=== PATIENT | female | born 2000 | race Caucasian/White ===

== ENCOUNTER 2023-07-23 19:06 | Emergency (ER) | payer BC ==
[~2023-07-23] VITALS: Ht 160 cm; Wt 51.1 kg
[2023-07-23] MEDS ORDERED: NAPR500T6 PO (19:17)
[2023-07-23 20:20] LABS: VENOUS BASE EXCESS -1.6 (-2.0-2.0); VENOUS HCO3 22.8 MMOL/L (23.0-27.0); VENOUS O2 SATURATION 86.2 % (60.0-80.0); VENOUS PARTIAL PRESSURE CO2 37.8 mmHg (38.0-50.0); VENOUS PARTIAL PRESSURE O2 48.5 mmHg (30.0-50.0); VENOUS PH 7.399 UNITS (7.330-7.430); VENOUS STANDARD HCO3 22.9 MMOL/L
[2023-07-23] MEDS: NS 1,000 ML IV ONE (20:20)
[2023-07-23 20:25] LABS: BASO % 0.5 % (0.0-1.0); EOS # 0.1 10^3/uL (0.0-0.5); EOS % 1.7 % (0.0-3.0); HEMATOCRIT 38.2 % (36.0-47.0); HEMOGLOBIN 12.9 g/dl (12.0-15.5); LYMPH # 1.8 10^3/uL (1.5-5.0); MEAN CORPUSCULAR HEMOGLOBIN 30.9 pg (27.0-33.0); MEAN CORPUSCULAR HGB CONC 33.8 g/dl (32.0-36.5); MEAN CORPUSCULAR VOLUME 91.6 fl (80.0-96.0); MONO # 0.6 10^3/uL (0.0-0.8); MONO % 7.2 % (2.0-8.0); NEUTROPHILS # 5.3 10^3/uL (1.5-8.5); NEUTROPHILS % 67.3 % (36.0-66.0); PLATELET COUNT, AUTOMATED 224 10^3/uL (150-450); RED BLOOD COUNT 4.17 10^6/uL (4.00-5.40); WHITE BLOOD COUNT 7.8 10^3/uL (4.0-10.0)
[2023-07-23 20:38] LABS: HEMOGLOBIN A1c 4.7 % (4.0-6.0)
[2023-07-23 20:51] LABS: D-DIMER QUANT < 0.27 ug/mL (<0.5); HCG, SERUM QUALITATIVE NEGATIVE (NEGATIVE); INR 1.23; PARTIAL THROMBOPLASTIN TIME 24.9 SECONDS (24.8-34.2); PROTHROMBIN TIME 15.1 SECONDS (12.5-14.5)
[2023-07-23 20:58] LABS: CK-MB VALUE MASS < 1.0 NG/ML (<3.6); LIPASE 26 U/L (12-53)
[2023-07-23 21:00] LABS: ALBUMIN 4.5 G/DL (3.2-5.2); ALKALINE PHOSPHATASE 85 U/L (46-116); ALT/SGPT 22 U/L (7.0-40); AST/SGOT 15 U/L (<34); BILIRUBIN,DIRECT 0.2 MG/DL (<0.4); BILIRUBIN,TOTAL 0.5 MG/DL (0.3-1.2); BLOOD UREA NITROGEN 7 MG/DL (9-23); CALCIUM LEVEL 9.2 MG/DL (8.5-10.1); CARBON DIOXIDE LEVEL 24 MMOL/L (20-31); CHLORIDE LEVEL 107 MMOL/L (98-107); CREATININE FOR GFR 0.59 MG/DL (0.55-1.30); GLOMERULAR FILTRATION RATE > 60.0 (>60); GLUCOSE, FASTING 119 MG/DL (60-100); POTASSIUM SERUM 3.7 MMOL/L (3.5-5.1); SODIUM LEVEL 141 MMOL/L (136-145); TOTAL PROTEIN 6.7 G/DL (5.7-8.2)
[2023-07-23 21:01] LABS: CPK CREATINE PHOSPHOKINASE 62 U/L (34-145); FREE T4 1.23 NG/DL (0.89-1.76); MB/CK RELATIVE INDEX 1.61 (< OR =4); THYROID STIMULATING HORMONE 0.545 uIU/ML (0.55-4.78)
[2023-07-23 22:35] VITALS: BP 121/79; TEMP 97.7; O2SAT 97
== END 2023-07-23 22:37 | disposition home or self-care (01) ==
LOC: M ED 19:06
DX: R53.83 Other fatigue (principal); R07.89 Other chest pain; F17.290 Nicotine dependence, other tobacco product, uncomplicated